=== PATIENT | male | born 1990 ===

== ENCOUNTER 2018-02-25 15:14 | Emergency (ER) | payer OTHER ==
[2018-02-25 15:24] VITALS: BP 131/87; PULSE 77; RESP 19; O2SAT 98
--- NOTE | 2018-02-25 16:39 | ED PDOC ---
HPI: General Adult Time Seen by Provider: 02/25/18 15:30 Chief Complaint (Nursing): ENT Problem Chief Complaint (Provider): Throat Discomfort History Per: Patient History/Exam Limitations: no limitations Onset/Duration Of Symptoms: Days Current Symptoms Are (Timing): Still Present Additional Complaint(s): 27 year old male presents to the ED complaining of throat discomfort. Reports he swallowed a motrin tablet last night and it is struck in his throat. He feels the pill moving when swallowing and has pain since then. Denies fever or shortness of breath. pt states that he has been tolerating po. PMD: No Family Provider Past Medical History Reviewed: Historical Data, Nursing Documentation, Vital Signs Vital Signs: Last Vital Signs Temp 97.9 F 02/25/18 19:52 Pulse 77 02/25/18 15:20 Resp 19 02/25/18 15:20 BP 131/87 02/25/18 15:20 Pulse Ox 98 02/25/18 19:56 - Medical History PMH: No Chronic Diseases - Surgical History Surgical History: No Surg Hx - Family History Family History: States: Unknown Family Hx - Social History Current smoker - smoking cessation education provided: No Alcohol: Social Drugs: Denies - Home Medications Home Medications: Ambulatory Orders Medication Instructions Recorded Famotidine [Pepcid] 20 mg PO BID PRN #10 tab 02/25/18 - Allergies Allergies/Adverse Reactions: Allergies Allergy/AdvReac Type Severity Reaction Status Date / Time No Known Allergies Allergy Verified 02/25/18 15:20 Review of Systems ROS Statement: Except As Marked, All Systems Reviewed And Found Negative Constitutional: Negative for: Fever ENT: Positive for: Throat Pain Respiratory: Negative for: Shortness of Breath Physical Exam - Reviewed Nursing Documentation Reviewed: Yes Vital Signs Reviewed: Yes - Physical Exam Appears: Positive for: Non-toxic, No Acute Distress Head Exam: Positive for: ATRAUMATIC, NORMAL INSPECTION, NORMOCEPHALIC Skin: Positive for: Normal Color, Warm. Negative for: Rash Eye Exam: Positive for: Normal appearance ENT: Positive for: Normal ENT Inspection Neck: Positive for: Normal Cardiovascular/Chest: Positive for: Regular Rate, Rhythm Respiratory: Positive for: Normal Breath Sounds Gastrointestinal/Abdominal: Positive for: Normal Exam, Soft Neurologic/Psych: Positive for: Alert, Oriented (x3) - ECG O2 Sat by Pulse Oximetry: 98 (RA) Pulse Ox Interpretation: Normal Medical Decision Making Medical Decision Making: Time: 1617 Initial Plan: FB sensation from tablet of motrin. --Neck Soft Tissue [RAD] --Reevaluation 19:25 Neck soft tissue x-ray FINDINGS: Airway: No evidence of radiopaque foreign body.. No abnormal narrowing. Bones/joints: Unremarkable. Soft tissues: Unremarkable. No abnormal soft tissue prominence. Normal epiglottis. IMPRESSION: No evidence of radiopaque foreign body. 19:55 -x-ray is negative. Patient is medically stable for discharge and requires no further treatment in the ED at this time. Patient will be discharged home with Rx for Pepcid. Counseling was provided and all questions were answered regarding diagnosis and need for follow up with ENT specialist. There is agreement to discharge plan. Return if symptoms persist or worsen. Scribe Attestation: Documented by Beatriz Mejia, acting as a scribe for Natasha Steve MD Provider Scribe Attestation: All medical record entries made by the Scribe were at my direction and personally dictated by me. I have reviewed the chart and agree that the record accurately reflects my personal performance of the history, physical exam, medical decision making, and the department course for this patient. I have also personally directed, reviewed, and agree with the discharge instructions and disposition. Disposition - Clinical Impression Clinical Impression: Foreign body sensation in throat - Patient ED Disposition Is Patient to be Admitted: No Counseled Patient/Family Regarding: Studies Performed, Diagnosis, Need For Followup - Disposition Referrals: [facility] [Outside] Clovis Norman MD [Staff Provider] - Disposition: Routine/Home Disposition Time: 19:40 Condition: IMPROVED Additional Instructions: follow up with the ENT specialist as indicated above in 1-2 days return to the ED with any worsening or concerning symptoms Prescriptions: Famotidine [Pepcid] 20 mg PO BID PRN #10 tab PRN Reason: Heartburn Instructions: Acute Pain, Adult Forms: [facility] (Spanish)
[2018-02-25 19:53] VITALS: TEMP 97.9
--- NOTE | 2018-02-26 08:49 | RAD ---
Date of service: 02/25/2018 PROCEDURE: Cervical Spine Radiographs. HISTORY: Pain. COMPARISON: None. FINDINGS: BONES: Alignment maintained. No fracture. Dens Intact. DISC SPACES: Normal. SOFT TISSUES: Normal. No prevertebral soft tissue swelling. OTHER FINDINGS: None. IMPRESSION: Unremarkable cervical spine radiographs
== END 2018-02-25 19:54 | disposition home or self-care (01) ==
LOC: H.ER 15:14
DX: R09.89 Other specified symptoms and signs involving the circulatory and respiratory systems (principal)